=== PATIENT | male | born 1970 | race Caucasian/White ===

== ENCOUNTER 2016-12-11 11:11 | Emergency (ER) | payer MEDICAID, OTHER ==
[2016-12-11 11:25] VITALS: O2SAT 95
[2016-12-11] MEDS ORDERED: FLUORESCEIN SODIUM 1 MG STRIP OP ONE (11:53)
[2016-12-11] MEDS ORDERED: PROPARACAINE 0.5% 15 ML OPHT DROP ONE (11:53)
--- NOTE | 2016-12-11 12:16 | EDPHY ---
H & P Time Seen by Provider: 12/11/16 11:48 HPI/ROS: CHIEF COMPLAINT: Right eye injury HISTORY OF PRESENT ILLNESS: 46-year-old male presents to the emergency department by private vehicle complaining of isolated injury to the right eye. The patient states that he was poked in his right eye with an earring last evening. He immediately had pain. He continues to complain of irritation in the right eye. No visual changes. He believes his tetanus shot is current. ROS: Denies double vision, blurry vision, symptoms in the left eye. Denies drainage or tearing from the left right or left eye. Past Medical/Surgical History: Negative Social History: Smoking Status: Never smoked Physical Exam: Pupils:equal round and reactive to light EOMI Lids: no edema or swelling upper eyelid was everted and no retained foreign body noted. Skin: no proptosis, no periorbital erythema or swelling, no vesicles Conjunctivae: Injection noted to the inferior aspect of the sclera just below the cornea. No discharge noted. Cornea: After Alcaine drops were instilled into the right eye with relief, fluorescein was used. There was isolated uptake of dye noted at inferior aspect just below the cornea around the 7 o'clock position. No evidence of retained foreign body noted. Anterior chamber:normal, no hyphema or hypopyon Constitutional: Initial Vital Signs Temperature (C) 36.7 C 12/11/16 11:22 Heart Rate 63 12/11/16 11:22 Respiratory Rate 16 12/11/16 11:22 Blood Pressure 133/88 H 12/11/16 11:22 O2 Sat (%) 95 12/11/16 11:22 O2 Delivery Mode Room Air Allergies/Adverse Reactions: No Known Allergies Allergy (Verified 12/11/16 11:21) Home Medications: Medication Instructions Recorded Ofloxacin 0.3% [Ocuflox] 1 - 2 drops RTEYE TID 7 Days 12/11/16 MDM/Departure - [facility] ED Course/Re-evaluation: The patient will be treated with Ocuflox drops to prevent infection. He believes his tetanus shot is current. He was given ophthalmology referral if he has any problems in the next 2-3 days. He was instructed to return if he developed visual changes or any other concerns. - Depart Disposition: Home, Routine, Self-Care Clinical Impression: Abrasion of sclera of right eye Qualifiers: Encounter type: initial encounter Qualifier Code: (S05.8X1A) Other injuries of right eye and orbit, initial encounter Condition: Good Instructions: Abrasion (ED), Subconjunctival Hemorrhage (ED) Additional Instructions: Ocuflox drops three times daily for 1 week to the right eye to prevent infection. Ibuprofen 600 mg every 8 hours as needed for pain. Activity as tolerated. Prescriptions: Ofloxacin 0.3% [Ocuflox] 1 - 2 drops RTEYE TID 7 Days Referrals: Dinh Chiu MD [Medical Doctor] - 2-3 days, if not improved ([employer] Supervisor on-call)
[2016-12-11 12:59] VITALS: BP 140/71; PULSE 79; RESP 18; TEMP 97.9
== END 2016-12-11 12:58 | disposition home or self-care (01) ==
DX: S05.8X1A Other injuries of right eye and orbit, initial encounter (principal); W22.8XXA Striking against or struck by other objects, initial encounter

== ENCOUNTER 2017-07-20 17:23 | Emergency (ER) | payer MEDICAID ==
[2017-07-20 17:41] VITALS: O2SAT 96
[2017-07-20] MEDS ORDERED: IBUPROFEN 600 MG TAB PO ONE (19:45)
--- NOTE | 2017-07-20 20:10 | EDPHY ---
H & P Stated Complaint: Fell while trail running, possible concussion, lacerations. Time Seen by Provider: 07/20/17 20:07 HPI/ROS: HPI: This is a 47-year-old male who presents with Chief Complaint: Scalp laceration Location: Right frontal scalp Quality: Laceration Duration: 1 hour prior to arrival Signs and Symptoms: No loss of consciousness, no neck pain, + bleeding, no radiation, no numbness, no weakness, no tingling, no incontinence, no decreased range of motion Timing: Acute Severity: Moderate Context: Patient reports that he was trail running; slipped on some loose gravel and fell face 1st hitting his head some debris on the trail and scanning both his knees and hands. He was ambulatory at the scene. Denies loss of consciousness. He is able to hike out [address] [place] and drive himself to the ER. Reports tetanus up-to-date. Modifying Factors: Direct pressure Comment: ROS: Constitutional: No fever, no chills, no weight loss Eyes: No blurred vision Respiratory: No shortness of breath, no cough Cardiovascular: No chest pain Gastrointestinal: No nausea, no vomiting no diarrhea Genitourinary: No dysuria Extremities: No myalgias Neurologic: No weakness, no numbness Skin: No rashes Hematologic: No bruising, no bleeding MEDICAL/SURGICAL/SOCIAL HISTORY: Generally healthy. Source: Patient Exam Limitations: No limitations - Personal History Current Tetanus Diphtheria and Acellular Pertussis (TDAP): Yes - Medical/Surgical History Hx Asthma: Yes Hx Chronic Respiratory Disease: No Hx Diabetes: No Hx Cardiac Disease: No Hx Renal Disease: No Hx Cirrhosis: No Hx Alcoholism: No Hx HIV/AIDS: No Hx Splenectomy or Spleen Trauma: No Other PMH: denies - Social History Smoking Status: Never smoked - Physical Exam Exam: CONSTITUTIONAL: Adult white male, awake and alert, no obvious distress HEENT: 2.5 cm vertical deep right frontal scalp laceration near the hairline; mild active bleeding. normocephalic, PERRL, EOMI. no globe entrapment, no raccoon eyes. Tympanic membranes clear. No tympanic membrane rupture. Oropharynx clear, no exudate and moist pink mucosa. No malocclusion. no dental trauma. Airway patent. No lymphadenopathy. NECK: supple, no midline tenderness, flexion 45 degrees, extension 45 degrees, right and left lateral flexion 45 degrees. No meningismus. Cardiovascular: Normal S1/S2, regular rate, regular rhythm, without murmur rub or gallop. PULMONARY/CHEST: Symmetrical and nontender. no crepitus. Clear to auscultation bilaterally Good air movement. No accessory muscle usage. ABDOMEN: Soft, nondistended, nontender, no ecchymosis, no rebound, no guarding , no peritoneal signs, no masses or organomegaly. No CVAT. PELVIC: no pain with rocking; bilateral hips flexion 125 degrees, extension 30 degrees, with no pain internal rotation and no pain external rotation. EXTREMITIES: 2/2 pulses, no deformities, no clubbing, no cyanosis or edema. NEUROLOGICAL: no focal neuro deficits. GCS 15. SKIN: Warm and dry, abrasions noted to bilateral hands/bilateral knees. no erythema. no rash. Good capillary refill. Constitutional: Initial Vital Signs Temperature (C) 36.5 C 07/20/17 17:37 Heart Rate 70 07/20/17 17:37 Respiratory Rate 18 07/20/17 17:37 Blood Pressure 152/73 H 07/20/17 17:37 O2 Sat (%) 96 07/20/17 17:37 O2 Delivery Mode Room Air Allergies/Adverse Reactions: No Known Allergies Allergy (Verified 12/11/16 11:21) Home Medications: Medication Instructions Recorded Ofloxacin 0.3% [Ocuflox] 1 - 2 drops RTEYE TID 7 Days btl 12/11/16 traZODone 07/20/17 Medical Decision Making Procedures: Procedure: Laceration repair. Verbal consent was obtained from the patient. The deep simple 2.5 cm laceration on the right frontal was anesthetized in the usual fashion using 3 mL of 1% lidocaine with epinephrine. The wound was irrigated, draped and explored to its base with a gloved finger. There were no deep structures involved. No tendon injury was identified. The wound was repaired with #5, 5- 0 Vicryl in simple interrupted pattern. Good hemostasis is achieved and patient tolerated procedure all. Bacitracin and clean sterile dressing was placed. The procedure was performed by myself. ED Course/Re-evaluation: No loss of consciousness and no neurological symptoms; Head CT scan is not indicated and patient politely declined. Ibuprofen given Patient's clean with mild soap and water. Tetanus up-to-date. Scalp laceration was repaired with absorbable sutures. No signs of neurovascular compromise/tenting of skin/compartment syndrome/ extremities and joints examined above and below area of concern and are neurovascularly intact. Differential Diagnosis: Head injury including but not limited to concussion, skull fracture, intraparenchymal contusion, subarachnoid, subdural and epidural hematoma. - Data Points Medications Given: Discontinued Medications Ibuprofen (Motrin) 600 mg PO EDNOW ONE Stop: 07/20/17 19:46 Last Admin: 07/20/17 19:52 Dose: 600 mg Departure - Departure Disposition: Home, Routine, Self-Care Clinical Impression: Abrasions of multiple sites Scalp laceration Qualifiers: Encounter type: initial encounter Qualified Code(s): S01.01XA - Laceration without foreign body of scalp, initial encounter Condition: Good Instructions: Care For Your Stitches (ED), Laceration (ED) Additional Instructions: Keep the dressing in place for 48 hours. After 48 hours, you may remove the dressing; wash the site daily with mild soap and water; then pat dry. Take ibuprofen 600-800 mg every 6-8 hours with food as needed for pain and inflammation. Apply ice for 30 minutes at a time; 2-3 times per day for the next 1-2 days. Monitor for signs and symptoms of concussion. Your laceration was closed today with absorbable sutures. Therefore they will dissolve and they do not need to be removed. Clean your abrasions daily with mild soap and water. Apply topical antibiotic ointment daily as needed to prevent infection. Referrals: [facility],. [Clinic] - As per Instructions
[2017-07-20 20:17] VITALS: BP 112/74; PULSE 64; RESP 16; TEMP 97.9
== END 2017-07-20 20:17 | disposition home or self-care (01) ==
PROC: 0HQ0XZZ Repair Scalp Skin, External Approach (ICD-10-PCS; principal; 2017-07-20)
DX: S01.01XA Laceration without foreign body of scalp, initial encounter (principal); S60.511A Abrasion of right hand, initial encounter; S60.512A Abrasion of left hand, initial encounter; S80.211A Abrasion, right knee, initial encounter; S80.212A Abrasion, left knee, initial encounter; W01.198A Fall on same level from slipping, tripping and stumbling with subsequent striking against other object, initial encounter; Y92.89 Other specified places as the place of occurrence of the external cause; Y99.8 Other external cause status; Y93.02 Activity, running; J45.909 Unspecified asthma, uncomplicated